=== PATIENT | female | born 1960 | race Caucasian/White ===

== ENCOUNTER 2018-03-27 10:44 | Emergency (ER) | payer OTHER ==
[~2018-03-27] VITALS: Ht 149.9 cm; Wt 65.4 kg
[2018-03-27 12:54] VITALS: BP 145/83
== END 2018-03-27 13:31 | disposition home or self-care (01) ==
LOC: ED 12:19
DX: S06.0X0A Concussion without loss of consciousness, initial encounter (principal); W01.0XXA Fall on same level from slipping, tripping and stumbling without subsequent striking against object, initial encounter; Y93.01 Activity, walking, marching and hiking; Y92.830 Public park as the place of occurrence of the external cause; Y99.8 Other external cause status
CPT/HCPCS: 70450; 99284